=== PATIENT | female | born 1990 | race Caucasian/White ===

== ENCOUNTER 2016-09-20 08:42 | Emergency (ER) | payer OTHER ==
[2016-09-20 09:52] LABS: APPEARANCE,URINE CLEAR; BILIRUBIN,URINE NEGATIVE (NEGATIVE); GLUCOSE, URINE NEGATIVE (NEGATIVE); KETONES,URINE NEGATIVE (NEGATIVE); LEUKOCYTE ESTERASE,URINE TRACE (NEGATIVE); NITRITE,URINE NEGATIVE (NEGATIVE); PROTEIN,URINE NEGATIVE (NEGATIVE); UROBILINOGEN,URINE NEGATIVE mg/dL (<2.0)
[2016-09-20 09:57] LABS: ABSOLUTE EOSINOPHILS # (AUTO) 0.1 10^3/uL (0.0-0.6); ABSOLUTE LYMPHOCYTES (AUTO) 1.7 10^3/uL (0.5-4.7); ABSOLUTE MONOCYTES (AUTO) 0.4 10^3/uL (0.1-1.4); ABSOLUTE NEUT (AUTO) 5.4 10^3/uL (1.7-8.2); BASOPHILS % (AUTO) 0.2 % (0-2); EOSINOPHILS % (AUTO) 1.3 % (0-6); HEMATOCRIT 44.5 % (36.0-47.0); HEMOGLOBIN 14.8 g/dL (12.0-15.5); HGB HCT DIFFERENCE -0.1; LYMPHOCYTES % (AUTO) 22.1 % (13-45); MEAN CORPUSCULAR HEMOGLOBIN 30.4 pg (27.0-33.4); MEAN CORPUSCULAR HGB CONC 33.4 g/dL (32.0-36.0); MEAN CORPUSCULAR VOLUME 91 fl (80-97); MONOCYTES % (AUTO) 5.5 % (3-13); RED BLOOD COUNT 4.88 10^6/uL (3.72-5.28); RED CELL DISTRIBUTION WIDTH 13.7 % (11.5-14.0); SEGMENTED NEUTROPHILS % (AUTO) 70.9 % (42-78); WHITE BLOOD COUNT 7.5 10^3/uL (4.0-10.5)
--- NOTE | 2016-09-20 10:05 | ER Document Report ---
ED General - General Chief Complaint: Abdominal Pain Stated Complaint: ABDOMINAL PAIN Mode of Arrival: Ambulatory Information source: Patient Notes: Patient presents emergency department with complaints of right lower quadrant abdominal pain for the past 2 days. She reports the pain has been coming and going. She reports yesterday it was hurting so bad she had to call her home from work. She reports she was doubled over in pain. She reports the pain comes and goes but reports a constant dull ache with episodes of sharp pain. She reports decreased appetite, last bowel movement was today and it was diarrhea. She denies fever vomiting. She does report pain with void. She reports pain on the right side started before the pain with void. She denies vaginal discharge. She also reports it hurts more when she lays flat. reports he has googled the symptoms and is worried she has an appendicitis. TRAVEL OUTSIDE OF THE [place] IN LAST 30 DAYS: No - HPI Onset: Other - A few days Onset/Duration: Persistent, Waxing and waning Quality of pain: Dull, Sharp Severity: Moderate Pain Level: 3 Associated symptoms: None Exacerbated by: Supine Relieved by: Denies Similar symptoms previously: No Recently seen / treated by doctor: No - Related Data Allergies/Adverse Reactions: No Known Allergies Allergy (Unverified 09/20/16 08:52) Past Medical History - General Information source: Patient Last Menstrual Period: 08/28/16 - Social History Smoking Status: Current Every Day Smoker Cigarette use (# per day): Yes Chew tobacco use (# tins/day): No Frequency of alcohol use: None Drug Abuse: None Lives with: Family Family History: Reviewed & Not Pertinent Patient has suicidal ideation: No Patient has homicidal ideation: No - Medical History Medical History: Negative Renal/ Medical History: Denies: Hx Peritoneal Dialysis Past Surgical History: Reports: Hx Section - Immunizations Hx Diphtheria, Pertussis, Tetanus Vaccination: Yes Review of Systems - Review of Systems Notes: -Review HPI for review of systems., All other systems negative Physical Exam - Vital signs Vitals: Temp Pulse Resp BP Pulse Ox 98.4 F 74 20 122/83 100 09/20/16 08:53 09/20/16 08:53 09/20/16 08:53 09/20/16 08:53 09/20/16 08:53 - Notes Notes: PHYSICAL EXAMINATION: GENERAL: Well-appearing and in no acute distress HEAD: Atraumatic, normocephalic. EYES: Pupils equal round extraocular movements intact, sclera anicteric, conjunctiva are normal. ENT: nares patent, Moist mucous membranes. NECK: Normal range of motion, supple without lymphadenopathy LUNGS: CTAB and equal. No wheezes rales or rhonchi. HEART: Regular rate and rhythm without murmurs ABDOMEN: Soft, RLQ tenderness. No guarding, no rebound BACK: denies pain EXTREMITIES: Normal range of motion, no pitting edema. No cyanosis. NEUROLOGICAL: Cranial nerves grossly intact. Normal sensory/motor exams. PSYCH: Normal mood, normal affect. SKIN: Warm, Dry, normal turgor, no rashes or lesions noted Course - Re-evaluation Re-evalutation: 09/20/16 10:04 Patient instructed on pending labs discussed differential from appendicitis, ovarian cyst to UTI. She verbalized understanding. She verbalized understanding to nothing by mouth status. 09/20/16 10:44 Labs unremarkable, will send for a transvaginal ultrasound, patient declines pain medication. 09/20/16 Family instructed on labs, ovarian cyst. She reports she does have a history of ovarian cyst. She reports she had ovarian cysts before she had children. Patient recently had twins that are 9 months old. Patient declines pain medication here but requests something stronger to take home. She'll has been extracted on the importance of follow-up with CLINICAL STATISTICS MANAGER. Instructed on warning signs of ruptured cyst. They verbalized understanding to all instructions. - Vital Signs Vital signs: Temp Pulse Resp BP Pulse Ox 97.9 F 77 16 108/64 99 09/20/16 14:16 09/20/16 14:16 09/20/16 14:16 09/20/16 14:16 09/20/16 14:16 - Laboratory Result Diagrams: 09/20/16 09:30 09/20/16 09:30 Laboratory results interpreted by me: 09/20/16 09:30 Ur Leukocyte Esterase TRACE H - Diagnostic Test Radiology reviewed: Image reviewed, Reports reviewed - Diagnostic report text EXAM DESCRIPTION: U/S NON OB PEL TV W/DOPPLER COMPLETED DATE/TIME: 2016 12:53 pm REASON FOR STUDY: RLQ pain COMPARISON: None. TECHNIQUE: Dynamic and static grayscale images acquired of the pelvis via transvaginal approach and recorded on PACS. Additional selected color Doppler and spectral images recorded. LIMITATIONS: None. FINDINGS: UTERUS: Contour normal. No mass. Uterus is 8.4 x 7 x 5.4 cm in size. ENDOMETRIAL STRIPE: No focal or generalized thickening. No masses. Endometrial stripe 9 mm in thickness CERVIX : No nabothian cysts. RIGHT OVARY: Right ovary 2.4 x 1.3 x 1.2 cm in size with a 12 mm follicular cyst present. RIGHT OVARY DOPPLER: Normal arterial vascular flow without evidence for torsion. LEFT OVARY: Left ovary 4 x 3.7 x 3.7 cm in size. Complex cyst with low level internal echoes, 3.5 cm in size, likely a hemorrhagic cyst. LEFT OVARY DOPPLER: Normal arterial vascular flow without evidence for torsion. FREE FLUID: None noted. OTHER: No other significant finding. TECHNICAL DOCUMENTATION: JOB ID: [id number] [employer]- All Rights Reserved US/U/S NON OB PEL TV W/ DOPPLER IMPRESSION: FOLLICULAR CYST RIGHT OVARY, HEMORRHAGIC CYST LEFT OVARY. OTHERWISE, NORMAL TRANSVAGINAL PELVIC ULTRASOUND. Discharge - Discharge Clinical Impression: Abdominal pain Qualifiers: Abdominal location: right lower quadrant Qualified Code(s): R10.31 - Right lower quadrant pain Ovarian cyst Qualifiers: Laterality: bilateral Qualified Code(s): N83.201 - Unspecified ovarian cyst, right side Condition: Stable Disposition: HOME, SELF-CARE Instructions: Abdominal Pain ([facility]), Ovarian Cyst ([facility]), Ob-Export Agent Doctors, Use of [id number] Ibuprofen ([facility]), Oral Narcotic Medication ([facility]) Additional Instructions: *You have been evaluated for abdominal pain, ovarian cysts *Take ibuprofen as indicated for mild or moderate pain *Take percocet for acute pain *Follow up with your CLINICAL STATISTICS MANAGER within one week *Return to ED for worsening condition, changes, needs, fever, vaginal bleed, concerns *Return to ED if not better in 24 hours Prescriptions: Oxycodone HCl/Acetaminophen [Percocet 5-325 mg Tablet] 1 - 2 tab PO ASDIR PRN # 15 tablet PRN Reason:
[2016-09-20 10:07] LABS: ALANINE AMINOTRANSFERASE 29 U/L (9-52); ALBUMIN 4.2 g/dL (3.5-5.0); ALKALINE PHOSPHATASE 64 U/L (38-126); ANION GAP 9 (5-19); ASPARTATE AMINO TRANSFERASE 25 U/L (14-36); BILIRUBIN,TOTAL 0.5 mg/dL (0.2-1.3); BLOOD UREA NITROGEN 10 mg/dL (7-20); CALCIUM 9.6 mg/dL (8.4-10.2); CARBON DIOXIDE 29 mmol/L (22-30); CHLORIDE 104 mmol/L (98-107); CREATININE RESULT 0.58 mg/dL (0.52-1.25); GLUCOSE 92 mg/dL (75-110); LIPASE 102.6 U/L (23-300); POTASSIUM 4.4 mmol/L (3.6-5.0); SODIUM 142.2 mmol/L (137-145); TOTAL PROTEIN 6.6 g/dL (6.3-8.2)
[2016-09-20 14:27] VITALS: BP 108/64
== END 2016-09-20 14:19 | disposition home or self-care (01) ==
LOC: ER 08:42
DX: N83.201 Unspecified ovarian cyst, right side (principal); R10.31 Right lower quadrant pain; R63.0 Anorexia; F17.210 Nicotine dependence, cigarettes, uncomplicated
CPT/HCPCS: 36415; 76830; 80053; 81001; 83690; 84703; 85025; 93976; 99284

== ENCOUNTER 2017-08-11 00:27 | Outpatient (CLI) | payer MEDICAID ==
[2017-08-11 01:03] LABS: APPEARANCE,URINE CLEAR; BILIRUBIN,URINE NEGATIVE (NEGATIVE); COLOR,URINE YELLOW; GLUCOSE, URINE NEGATIVE (NEGATIVE); KETONES,URINE NEGATIVE (NEGATIVE); LEUKOCYTE ESTERASE,URINE SMALL (NEGATIVE); NITRITE,URINE NEGATIVE (NEGATIVE); PROTEIN,URINE NEGATIVE (NEGATIVE)
[2017-08-11 01:05] LABS: AMNISURE (ROM) NEGATIVE (NEGATIVE)
[2017-08-11 01:33] LABS: URINE AMPHETAMINES SCREEN NEGATIVE; URINE BARBITURATES SCREEN NEGATIVE; URINE BENZODIAZEPINES SCREEN NEGATIVE; URINE COCAINE SCREEN NEGATIVE; URINE MARIJUANA (THC) SCREEN NEGATIVE; URINE METHADONE SCREEN NEGATIVE; URINE PHENCYCLIDINE SCREEN NEGATIVE
[2017-08-11] MEDS ORDERED: OXYCODONE-ACETAMINOPHEN 5-325 MG TABLET PO ONE (01:37)
[2017-08-11] MEDS ORDERED: OXYCODONE-ACETAMINOPHEN 5-325 MG TABLET ONE ×2 (01:40→03:22)
[2017-08-11] MEDS: RINGERS SOLUTION,LACTATED 1,000 ML IV PRN ×3 (01:45→02:48)
--- NOTE | 2017-08-11 04:05 | Non Stress Test Report ---
Non Stress Test Datetime Report Generated by CPN: 08/11/2017 04:05 DEMOGRAPHIC Test Number: 1 EGA NST: 37.0 INDICATION Indication for Study: Ordered by Provider VITAL SIGNS Temperature - NST: 97.8 Pulse - NST: 86 RESP - NST: 16 NBPSYS NST: 125 NBPDIA NST: 79 URINE RESULTS Urine Protein, NST: Negative Urine Ketones - NST: Negative Urine Glucose - NST: Negative Urine Blood - NST: Positive MONITORING Monitor Explained: Monitor Explained; Test Explained; Patient Verbalized Understanding Time on Monitor: 08/11/2017 00:54 Time off Monitor: 08/11/2017 03:24 NST Duration: 150 NST INTERVENTIONS NST Interventions: IV Fluids Physician Notified NST: Dr. Sosa BABY A: [id number] BABY A Movement : Present Contraction Frequency : irregular with UI following IV fluids FHR Baseline : 150 Accelerations : 15X15 Decelerations : None Variability : Moderate 6-25bpm NST Review: Meets Criteria for Reactive NST NST Review and Verified By : Maryellen Bonds RN NST Results: Reactive NST REPORT Report Trigger: Send Report
== END 2017-08-11 03:38 | disposition home or self-care (01) ==
LOC: LC 00:27
PROVIDERS: ATTEND Obstetrics & Gynecology
DX: O47.1 False labor at or after 37 completed weeks of gestation (principal); Z3A.37 37 weeks gestation of pregnancy
CPT/HCPCS: 59025; 80307; 81005; 84112

== ENCOUNTER 2017-08-23 17:24 | Outpatient (CLI) | payer MEDICAID ==
[2017-08-23 18:04] LABS: APPEARANCE,URINE CLEAR; BILIRUBIN,URINE NEGATIVE (NEGATIVE); COLOR,URINE YELLOW; GLUCOSE, URINE NEGATIVE (NEGATIVE); KETONES,URINE 20 mg/dL (NEGATIVE); LEUKOCYTE ESTERASE,URINE NEGATIVE (NEGATIVE); NITRITE,URINE NEGATIVE (NEGATIVE); PROTEIN,URINE NEGATIVE (NEGATIVE)
[2017-08-23] MEDS ORDERED: RINGERS SOLUTION,LACTATED 1,000 ML IV PRN (18:09)
[2017-08-23] MEDS ORDERED: RINGERS SOLUTION,LACTATED 1,000 ML IV ONE (18:09)
[2017-08-23 18:12] LABS: AMNISURE (ROM) NEGATIVE (NEGATIVE)
[2017-08-23 18:17] LABS: URINE AMPHETAMINES SCREEN NEGATIVE; URINE BARBITURATES SCREEN NEGATIVE; URINE BENZODIAZEPINES SCREEN NEGATIVE; URINE COCAINE SCREEN NEGATIVE; URINE MARIJUANA (THC) SCREEN NEGATIVE; URINE METHADONE SCREEN NEGATIVE; URINE PHENCYCLIDINE SCREEN NEGATIVE
--- NOTE | 2017-08-23 20:06 | Non Stress Test Report ---
Non Stress Test Datetime Report Generated by CPN: 08/23/2017 20:05 DEMOGRAPHIC Test Number: 2 EGA NST: 38.5 INDICATION Indication for Study: Ordered by Provider; Other Indication for Study (NST) Other: LC MONITORING Monitor Explained: Monitor Explained; Test Explained; Patient Verbalized Understanding Time on Monitor: 08/23/2017 17:42 Time off Monitor: 08/23/2017 18:56 NST Duration: 74 NST INTERVENTIONS NST Interventions: IV Fluids; Reposition Patient Physician Notified NST: Abimael Octavio BABY A: [id number] BABY A Movement : Present Contraction Frequency : 3-7 FHR Baseline : 140 Accelerations : 15X15 Decelerations : None Variability : Moderate 6-25bpm NST Review: Meets Criteria for Reactive NST NST Review and Verified By : CAT Fitzpatrick NST Results: Reactive NST REPORT Report Trigger: Send Report
--- NOTE | 2017-08-23 21:35 | RADIOLOGY REPORT (SQ) ---
EXAM DESCRIPTION: U/S OB LIMITED COMPLETED DATE/TIME: 08/23/2017 7:57 pm REASON FOR STUDY: Need JESUSITA, single deepest pocket, presentation COMPARISON: None. TECHNIQUE: Limited transabdominal grayscale ultrasound for evaluation of specific requested obstetri daryn parameters. LIMITATIONS: None. FINDINGS: CERVICAL LENGTH: Not visualized JESUSITA: 19.7 cm. LVP 7.5 cm FHR: 141 beats per minute. PRESENTATION: Breech OTHER: No other significant findings. IMPRESSION: LIMITED OBSTETRICAL ULTRASOUND WITH MEASURED PARAMETERS DELINEATED ABOVE. Trimester of : Third trimester - 28 weeks to delivery. TECHNICAL DOCUMENTATION: JOB ID: [id number] [employer]- All Rights Reserved Reading location - IP/workstation name: [employer]
== END 2017-08-23 20:08 | disposition home or self-care (01) ==
LOC: LC 17:24
PROVIDERS: ATTEND Student in an Organized Health Care Education/Training Program
PROC: 4A1HXCZ Monitoring of Products of Conception, Cardiac Rate, External Approach (ICD-10-PCS; principal; 2017-08-23)
DX: O47.1 False labor at or after 37 completed weeks of gestation (principal); Z3A.38 38 weeks gestation of pregnancy
CPT/HCPCS: 59025; 76815; 80307; 81005; 84112

== ENCOUNTER 2017-08-27 07:26 | Inpatient (IN) | payer MEDICAID ==
[2017-08-24 12:12] LABS: ABSOLUTE LYMPHOCYTES (AUTO) 1.7 10^3/uL (0.5-4.7); ABSOLUTE MONOCYTES (AUTO) 0.6 10^3/uL (0.1-1.4); ABSOLUTE NEUT (AUTO) 7.4 10^3/uL (1.7-8.2); BASOPHILS % (AUTO) 0.4 % (0-2); EOSINOPHILS % (AUTO) 0.3 % (0-6); HEMATOCRIT 35.6 % (36.0-47.0); HEMOGLOBIN 11.5 g/dL (12.0-15.5); MEAN CORPUSCULAR HEMOGLOBIN 26.7 pg (27.0-33.4); MEAN CORPUSCULAR HGB CONC 32.1 g/dL (32.0-36.0); MEAN CORPUSCULAR VOLUME 83 fl (80-97); MONOCYTES % (AUTO) 6.5 % (3-13); PLATELET COUNT 285 10^3/uL (150-450); RED BLOOD COUNT 4.28 10^6/uL (3.72-5.28); RED CELL DISTRIBUTION WIDTH 20.5 % (11.5-14.0); SEGMENTED NEUTROPHILS % (AUTO) 75.8 % (42-78); TOTAL CELLS COUNTED % (AUTO) 100 %; WHITE BLOOD COUNT 9.7 10^3/uL (4.0-10.5)
[2017-08-24 12:34] LABS: ANION GAP 5 (5-19); BLOOD UREA NITROGEN 5 mg/dL (7-20); CALCIUM 9.3 mg/dL (8.4-10.2); CARBON DIOXIDE 24 mmol/L (22-30); CHLORIDE 107 mmol/L (98-107); GLUCOSE 71 mg/dL (75-110); POTASSIUM 4.4 mmol/L (3.6-5.0); SODIUM 136.1 mmol/L (137-145)
[~2017-08-27 07:26] MED LIST: CEFAZOLIN 2 GM/D5W RTU 2 GM/50 ML RTUPB IV PRN; EPHEDRINE SULFATE INJ 50 MG/1 ML AMPULE ONE; LACTATED RINGERS 1000 ML IV PRN; LIDOCAINE 0.5% INJ-PF (5 MG/ML) 50 ML SDV SUBCUT PRN; RINGERS SOLUTION,LACTATED 1,000 ML IV PRN; TETRACAINE HCL/PF 20MG/2ML AMPULE (SPINAL) ONE
[2017-08-27] MEDS ORDERED: OXYTOCIN 10 UNIT/ML VIAL ONE (08:43)
[2017-08-27] MEDS ORDERED: FENTANYL CITRATE INJ/PF 100 MCG/2 ML AMPUL ONE (08:43)
[2017-08-27] MEDS ORDERED: MIDAZOLAM 2 MG/2 ML INJ ONE (08:43)
[2017-08-27] MEDS ORDERED: ACETAMINOPHEN 100 ML IV ONE (08:44)
[2017-08-27] MEDS ORDERED: OXYTOCIN/NORMAL SALINE 20 UNIT/1,000 ML RTUINJ ONE (08:44)
[2017-08-27] MEDS ORDERED: ONDANSETRON HCL INJ/PF 4 MG/2 ML SDV ONE (08:44)
[2017-08-27] MEDS ORDERED: MORPHINE SULFATE 10 MG/ML INJ IV PRN (11:34)
[2017-08-27] MEDS ORDERED: OXYCODONE-ACETAMINOPHEN 5-325 MG TABLET PO PRN ×3 (11:34→13:30)
[2017-08-27] MEDS ORDERED: FENTANYL CITRATE INJ/PF 100 MCG/2 ML AMPUL IV PRN ×3 (11:34)
[2017-08-27] MEDS ORDERED: DIPHENHYDRAMINE HCL 50 MG/ML VIAL IV PRN (11:34)
[2017-08-27] MEDS ORDERED: MEPERIDINE HCL/PF INJ 25 MG/1 ML DISP.SYRIN IV PRN (11:34)
[2017-08-27] MEDS ORDERED: PROMETHAZINE HCL INJ 25 MG/1 ML VIAL IV PRN ×2 (11:34)
--- NOTE | 2017-08-27 12:04 | OPERATIVE REPORT E ---
Operative Report NAME: JANA COLLINS : 1990 AGE: 26Y DATE OF SURGERY: 08/27/2017 ROOM: 227 PREOPERATIVE DIAGNOSIS: IUP at term with prior section. POSTOPERATIVE DIAGNOSIS: IUP at term with prior section. PROCEDURE: Repeat low transverse , delivery of viable female 8 pounds 15 ounces, Apgars of 9 and 9. SURGEON: Afua FERRIS M.D. ESTIMATED BLOOD LOSS: Less than 600 mL. TISSUE REMOVED OR ALTERED: Placenta. ANESTHESIA: Spinal. DESCRIPTION OF PROCEDURE: The patient was placed in a supine position and prepped and draped in a sterile fashion. A Pfannenstiel incision was made through the existing Pfannenstiel eschar. The incision extended through the subcutaneous tissue by sharp dissection. The fascia was sharply divided. Rectus muscles were bluntly and sharply divided. Parietal peritoneum was entered with sharp dissection. Uterus nicked in the midline and extended bilaterally. was then delivered through the uterine and abdominal incision using a Kiwi with 1 pole and the nose and mouth suctioned with a bulb syringe. Cord was clamped. The was passed from the table. Placenta was manually extracted and then the uterus closed in 2 layers, first with a running stitch of 0 Vicryl and a second Lembert stitch imbricating the first layer. The fascia was then closed with 0 Vicryl in a running fashion and the skin was closed with subcu 3-0 Monocryl. The patient tolerated the procedure well and was taken to the recovery room in good condition. *------* remained clear throughout the procedure and the went to nursery in good condition. DICTATING PHYSICIAN: Afua FERRIS M.D. [id number] PHY#: [id number] ID: [id number] JOB#: [id number] ACCT: [id number] cc:Afua FERRIS M.D. >
[2017-08-27] MEDS ORDERED: HYDROMORPHONE HCL INJ/PF 2 MG/ML AMPULE ONE ×2 (13:18→19:47)
[2017-08-27] MEDS ORDERED: MEASLES,MUMPS&RUBELLA VACC/PF 0.5 ML VIAL SUBCUT PRN (13:30)
[2017-08-27] MEDS ORDERED: PROMETHAZINE HCL INJ 25 MG/1 ML VIAL IM PRN (13:30)
[2017-08-27] MEDS ORDERED: ACETAMINOPHEN 325 MG TABLET PO PRN (13:30)
[2017-08-27] MEDS ORDERED: SIMETHICONE 80 MG TAB.CHEW PO PRN (13:30)
[2017-08-27] MEDS ORDERED: HYDROMORPHONE HCL INJ/PF 2 MG/ML AMPULE IV PRN (13:30)
[2017-08-27] MEDS ORDERED: DIPH/PERTUSS(ACELL)/TETANUS VAC/PF 0.5 ML SYR (>=10YO) IM PRN (13:30)
[2017-08-27] MEDS: OXYCODONE-ACETAMINOPHEN 5-325 MG TABLET PO PRN (15:38)
[2017-08-27] MEDS: IBUPROFEN 800 MG TABLET PO SCH ×2 (17:29→23:00)
[2017-08-27] MEDS: DOCUSATE SODIUM 100 MG CAPSULE PO SCH (17:29)
[2017-08-27] MEDS: OXYTOCIN/NORMAL SALINE 20 UNIT/1,000 ML RTUINJ INJ PRN (18:53)
[2017-08-28] MEDS: IBUPROFEN 800 MG TABLET PO SCH ×4 (05:02→23:42)
[2017-08-28 06:38] LABS: MEAN CORPUSCULAR HEMOGLOBIN 26.8 pg (27.0-33.4); MEAN CORPUSCULAR HGB CONC 32.4 g/dL (32.0-36.0); MEAN CORPUSCULAR VOLUME 83 fl (80-97); PLATELET COUNT 296 10^3/uL (150-450); RED BLOOD COUNT 4.11 10^6/uL (3.72-5.28); RED CELL DISTRIBUTION WIDTH 20.5 % (11.5-14.0); WHITE BLOOD COUNT 17.1 10^3/uL (4.0-10.5)
[2017-08-28] MEDS: OXYCODONE-ACETAMINOPHEN 5-325 MG TABLET PO PRN ×2 (07:57→19:14)
[2017-08-28] MEDS: PRENATAL VITAMIN W DHA CAPSULE PO SCH (10:10)
[2017-08-28] MEDS: DOCUSATE SODIUM 100 MG CAPSULE PO SCH ×2 (10:11→16:51)
--- NOTE | 2017-08-28 12:17 | PDOC PROGRESS REPORT ---
Subjective-OB Progress Note for:: 08/28/17 Subjective: tolerating diet, bleeding slowing, pain controlled with current meds. denies needs. Physical Exam (OB) Vital Signs: Temp Pulse Resp BP Pulse Ox 98.5 F 79 15 125/81 98 08/28/17 10:21 08/28/17 10:21 08/28/17 10:21 08/28/17 10:21 08/28/17 10:21 Intake & Output 08/27/17 08/28/17 08/29/17 06:59 06:59 06:59 Intake Total 2850 500 Output Total 3450 Balance -600 500 Weight 68.04 kg - Dressing Removed: - D&I Incision: Well Approximated - Abdomen Description: Soft Hernia Present: No Fundal Description: Firm, Midline Fundal Height: u/u - u/2 - Abdominal Inspection: Normal - Extremities Lower extremities: Solomon's sign - neg Calf: Normal, Nontender Objective-Diagnostic Laboratory: 08/28/17 06:21 08/24/17 11:20 08/28/17 06:21 WBC 17.1 H RBC 4.11 Hgb 11.0 L Hct 34.0 L MCV 83 MCH 26.8 L MCHC 32.4 RDW 20.5 H Plt Count 296 Assessment and Plan(PN) - Assessment and Plan (1) delivery delivered Is this a current diagnosis for this admission?: Yes - Time Spent with Patient Time with patient: Less than 15 minutes - Disposition Anticipated Discharge: Home Within: within 24 hours
[2017-08-28] MEDS: OXYTOCIN/NORMAL SALINE 20 UNIT/1,000 ML RTUINJ INJ PRN (15:22)
[2017-08-29] MEDS: OXYCODONE-ACETAMINOPHEN 5-325 MG TABLET PO PRN (05:05)
[2017-08-29] MEDS: IBUPROFEN 800 MG TABLET PO SCH (05:06)
--- NOTE | 2017-08-29 09:45 | PDOC DISCHARGE SUMMARY ---
Final Diagnosis Discharge Date: 08/29/17 - Final Diagnosis (1) delivery delivered Is this a current diagnosis for this admission?: Yes Discharge Data - Discharge Medication Home Medications: Vit Calc,Iron,Folic [ Vitamins] 1 tab PO DAILY 08/11/17 Reason(s) for Admission: Ceasarean Section-Repeat Intrapartum Procedure(s): : Low Cervical, Transverse - Diagnosis Test Laboratory: Temp Pulse Resp BP Pulse Ox 98.1 F 75 16 119/67 99 08/29/17 08:25 08/29/17 08:25 08/29/17 08:25 08/29/17 08:25 08/29/17 08:25 08/24/17 08/28/17 11:20 06:21 RBC 4.28 4.11 Hgb 11.5 L 11.0 L Hct 35.6 L 34.0 L - Discharge information/Instructions Discharge Activity: Activity As Tolerated Discharge Diet: Regular Disposition: HOME, SELF-CARE Follow up with: [facility] in: 1
[2017-08-29] MEDS: DOCUSATE SODIUM 100 MG CAPSULE PO SCH (10:22)
[2017-08-29] MEDS: PRENATAL VITAMIN W DHA CAPSULE PO SCH (10:23)
[2017-08-29 11:58] VITALS: BP 125/81
== END 2017-08-29 12:32 | disposition home or self-care (01) | DRG 766 ==
LOC: 2S 07:26
PROVIDERS: ADMIT Obstetrics & Gynecology Gynecology; ATTEND Obstetrics & Gynecology Gynecology
PROC: 4A1HXCZ Monitoring of Products of Conception, Cardiac Rate, External Approach (ICD-10-PCS; 2017-08-27)
PROC: 10D00Z1 Extraction of Products of Conception, Low, Open Approach (ICD-10-PCS; principal; 2017-08-27 10:30)
DX: O34.211 Maternal care for low transverse scar from previous cesarean delivery (principal); O24.420 Gestational diabetes mellitus in childbirth, diet controlled; Z37.0 Single live birth; Z83.3 Family history of diabetes mellitus
CPT/HCPCS: 1961; 36415; 59025; 80048; 82962; 85025; 85027; 86850; 86900; 86901; 94799; J0131; J0690; J1170; J2250; J2405; J2590; J3010; J3490